=== PATIENT | male | born 1950 | race Caucasian/White ===

== ENCOUNTER 2016-03-14 20:29 | Observation (INO) | payer MEDICAID ==
[~2016-03-14] VITALS: Ht 177.8 cm; Wt 76.2 kg
[~2016-03-14 20:29] MED LIST: BACLOFEN 10MG T10 MG PO; COMBIVIR1 TAB PO; HYDROCODONE 7.51 TAB PO; PERCOCET 5/3251 EACH PO; SILVADENE CREAM50 GM TP; VENTOLIN H0.09 MG/AC IH
[2016-03-14 20:44] VITALS: BP 113/67
[2016-03-14] MEDS ORDERED: SENNA LAXATIVE8.6 MG PO (22:20)
[2016-03-14] MEDS ORDERED: COLACE GENERIC100 MG PO (22:21)
[2016-03-14] MEDS ORDERED: HYDROCODONE/ACE1 TA5 PO (22:21)
[2016-03-14] MEDS ORDERED: COMBIVIR1 TAB PO (22:22)
[2016-03-14] MEDS ORDERED: Morphine Sulfat30 M1 PO (22:22)
[2016-03-14] MEDS ORDERED: DIAZEPAM5 MG PO (22:24)
[2016-03-14] MEDS ORDERED: SUSTIVA600 MG PO (22:25)
[2016-03-14] MEDS ORDERED: PERCOCET 10 MG1 EACH PO (22:26)
[2016-03-14] MEDS ORDERED: NEURONTIN800 MG PO (22:26)
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
[2016-03-14 23:11] LABS: LYMPH # 2.8 K/mm3 (0.7-4.5); LYMPH % 31.6 % (10-50)
[2016-03-14 23:20] LABS: BUN 10 mg/dL (7-18)
[2016-03-14 23:22] LABS: GFR (ESTIMATED) 85 ML/MIN (>60)
[2016-03-15 00:35] VITALS: BP 143/78
[2016-03-15 01:33] VITALS: BP 104/57
[2016-03-15 07:54] VITALS: BP 120/53
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
--- NOTE | 2016-03-15 09:40 | RADIOLOGY REPORT PS360 ---
CHEST-PORTABLE ORDERING PHYSICIAN : Shady Noriega MD PATIENT AGE: 65 years GENDER: Male INDICATION: Bilateral lower extremity edema swelling PROCEDURE: CHEST-PORTABLE COMPARISON: None available FINDINGS: Lungs well expanded. No discrete focal pneumonia . No pneumothorax. No pleural effusion. Upper normal markings towards the right midlung towards right lung base-most likely reflecting chronic changes. Difficult to exclude subtle infiltrate but favor chronic changes. Left lung unremarkable. There is mild vascular engorgement with possible mild cephalization question. No overt CHF or pulmonary edema No comparison studies. Mild cardiomegaly.. No pleural effusion . Hilar and mediastinal structures appear satisfactory. Chest wall unremarkable. T-spine intact. IMPRESSION Cardiomegaly. Mild vascular engorgement but no overt CHF. Question subtle cephalization No pleural effusion Upper normal markings right base most likely reflecting chronic changes
[2016-03-15 09:45] VITALS: BP 120/53
--- NOTE | 2016-03-15 10:19 | PHARMACY CLINIC NOTE ---
Patient Demographics Patient Demographics Admission date: 03/15/16 Date: 03/15/16 Time: 1018 Allergies Coded Allergies: Penicillins (03/14/16) HEIGHT- FT: 5 IN: 10.00 K.204 VTE General Information Labs: Laboratory Tests 03/14 2255 Hematology Hgb (14.1 - 18.0 g/dL) 11.0 L Hct (42.0 - 52.0 %) 32.0 L Plt Count (142 - 424 K/mm3) 499 H Disclaimer The following section includes nursing documentation that has been pulled in for pharmacy review. Patient's VTE score: 1 Patient's VTE Risk: VERY LOW RISK Clinical trial participant? No VTE prophylaxis F 0371 VTE prophylaxis ordered? Yes Type of prophylaxis/treatment: SATURNINO Cain at 1018
--- NOTE | 2016-03-15 13:30 | CARDIOVASCULAR REPORT ---
"Venous Exam Indications: 729.81 Swelling of limb. IMPRESSIONS 1. There is no evidence of significant Reflux. 2. No evidence of deep or superficial vein thrombosis involving the left lower extremity 3. No evidence of deep or superficial vein thrombosis involving the right lower extremity Complete lower extremity venous duplex evaluation. Doppler flow study including spectral analysis, color and monroy scale imaging. Location: Bedside. Patient status: Inpatient. Tables: Venous flow and imaging: + +-------+ + |Location |Overall|Flow properties | + +-------+ + |Right common femoral |Patent |Normal phasicity; spontaneous; | | | |normal augmentation; compressible| + +-------+ + |Right saphenofemoral junction|Patent |Compressible | + +-------+ + |Right profunda femoral |Patent |Compressible | + +-------+ + |Right femoral |Patent |Normal phasicity; spontaneous; | | | |normal augmentation; | | | |compressible; no reflux | + +-------+ + |Right greater saphenous |Patent |Normal phasicity; spontaneous; | | | |normal augmentation; compressible| + +-------+ + |Right popliteal |Patent |Normal phasicity; spontaneous; | | | |normal augmentation; compressible| + +-------+ + |Right posterior tibial |Patent |Compressible | + +-------+ + |Right peroneal |Patent |Compressible | + +-------+ + |Right gastrocnemius |Patent |Compressible | + +-------+ + |Right soleal |Patent |Compressible | + +-------+ + |Left common femoral |Patent |Normal phasicity; spontaneous; | | | |normal augmentation; compressible| + +-------+ + |Left saphenofemoral junction |Patent |Compressible | + +-------+ + |Left profunda femoral |Patent |Compressible | + +-------+ + |Left femoral |Patent |Normal phasicity; spontaneous; | | | |normal augmentation; compressible| + +-------+ + |Left greater saphenous |Patent |Normal phasicity; spontaneous; | | | |normal augmentation; compressible| + +-------+ + |Left popliteal |Patent |Normal phasicity; spontaneous; | | | |normal augmentation; compressible| + +-------+ + |Left posterior tibial |Patent |Compressible | + +-------+ + |Left peroneal |Patent |Compressible | + +-------+ + |Left gastrocnemius |Patent |Compressible | + +-------+ + |Left soleal |Patent |Compressible | + +-------+ + (Report amended ) Electronically signed by: Sarkis Caal [id number]"
[2016-03-15] MEDS ORDERED: ADULT LOW DOSE81 MG PO (15:07)
[2016-03-15] MEDS ORDERED: LASIX 40MG. TAB40 MG PO (15:08)
[2016-03-15 15:20] VITALS: BP 120/53
--- NOTE | 2016-03-16 20:52 | DISCHARGE SUMMARY STANDARD ---
Demographics Admit date: 03/14/16 Discharge date: 03/15/16 History of present illness History of present illness 65-year-old white male with history of lumbar stenosis/disc disease who underwent laminectomy at [facility] on March 04 which had a good result, and was discharged home with a prescription/recommendation for compression stockings but never received these. He and his brother reports that he's been fairly ambulatory but over the past couple of days has noticed increasing lower leg swelling and some pain in the calves. Denies respiratory symptoms or shortness of air or pleuritic chest pain or tachycardia. Came to the emergency department where bilateral lower extremity edema was noted. He d-dimer was elevated, patient was given a dose of Lovenox and was admitted to hospital for further evaluation for venous thromboembolic disease. Hospital Course Hospital Course: Patient was admitted as noted, his exam was consistent with ped Venous Doppler was donation or pulse deficits. Venous Doppler was done showing no evidence of DVT or SVT. He was discharged home with aspirin therapy, warm compresses, ongoing pain medication followup with neurosurgery. Was given Lasix to help with third space fluid accumulation and recommended increasing activity level. Discharge diagnoses Problem List 1. Peripheral edema 2. Elevated d-dimer Medications Medications: Discharge meds are as noted. Follow up Follow up in office in: 7 DAYS with: Shady Noriega MD at 205
[2016-06-08] MEDS ORDERED: MELOXICAM15 MG PO (12:44)
[2016-06-08] MEDS ORDERED: ALBUTEROL-1 PUFF/14. IN (12:45)
== END 2016-03-15 15:35 | disposition home or self-care (01) ==
LOC: ER 20:29 → 2ND 03-15 00:33
PROVIDERS: Emergency Medicine
DX: R60.9 Edema, unspecified (principal)
CPT/HCPCS: G0378